=== PATIENT | male | born 1965 | race Caucasian/White ===

== ENCOUNTER → 2017-09-18 10:19 | Outpatient (CLI) | payer OTHER, SELFPAY ==
--- NOTE | 2017-09-18 10:23 | XR_ITS ---
XR chest 2V HISTORY: ITS.REASON: cough, recent fever ORDERING PHYSICIAN: LOLIS Hernández PATIENT AGE: 52 years COMPARISON: 2 02 16 FINDINGS: The cardiomediastinal silhouette and pulmonary vascularity are within normal limits. No lobar consolidation or collapse. There is mild coarsening of the bronchovascular markings which may be seen with chronic bronchitis/smoking-related lung disease.. There is minimal atelectatic change in the lingula.. An 8 mm nodular opacity is noted in the left lung base not readily apparent on the previous exam No acute bony abnormalities. IMPRESSION: 1. Coarsening of bronchovascular markings consistent with chronic bronchitis or smoking related lung disease with mild left basilar atelectasis. Please correlate with patient's history. 2. 8 mm nodular opacity left lung base nonspecific. While this may represent summation artifact, developing nodule or small area of atelectasis is an additional consideration. Recommend follow-up radiograph. If this persists then, CT may be needed for further evaluation.
== END ==
PROVIDERS: PCP Family Medicine; Visit Provider Physician Assistant
DX: J06.9 Acute upper respiratory infection, unspecified (principal); R05 Cough; I25.10 Atherosclerotic heart disease of native coronary artery without angina pectoris; E78.5 Hyperlipidemia, unspecified; Z72.0 Tobacco use
CPT/HCPCS: 71046

== ENCOUNTER → 2017-09-20 07:50 | Outpatient (CLI) | payer OTHER, SELFPAY ==
[2017-09-20 14:03] LABS: Alanine Aminotransferase 37 U/L (12-78); Albumin Level 3.6 gm/dL (3.4-5.0); Alkaline Phosphatase 77 U/L (46-116); Anion Gap 12.9 mEq/L (5-15); Aspartate Amino Transferase 22 U/L (15-37); Bilirubin,Direct 0.2 mg/dL (0.0-0.2); Bilirubin,Total 0.8 mg/dL (0.2-1.0); Blood Urea Nitrogen 21 mg/dL (7-18); Carbon Dioxide 25 mmol/L (21.0-32.0); Chloride 104 mmol/L (98-107); Chol/HDL Ratio 3.1 (1-3.5); Cholesterol 94 mg/dL (140-200); Creatinine,Serum 1.07 mg/dL (0.70-1.30); Estimated Glomerular Filt Rate 72 ml/min (>60); GFR (African American) 87 ML/MIN (>60); Glucose 100 mg/dL (74-106); HDL Cholesterol 30 mg/dL (27-67); LDL Cholesterol 45 mg/dL (0-130); Potassium 4.9 mmoL/L (3.5-5.1); Sodium 137 mmol/L (136-145); Total Protein,Serum 7.1 gm/dL (6.4-8.2); Triglycerides 94 mg/dL (30-200); VLDL Cholesterol 19 mg/dL (0-40)
== END ==
PROVIDERS: Physician Assistant; Visit Provider Internal Medicine
DX: I25.10 Atherosclerotic heart disease of native coronary artery without angina pectoris (principal); E78.5 Hyperlipidemia, unspecified; R05 Cough; Z72.0 Tobacco use; J06.9 Acute upper respiratory infection, unspecified
CPT/HCPCS: 36415; 80048; 80061; 80076

== ENCOUNTER → 2019-09-09 14:01 | Outpatient (CLI) | payer OTHER, SELFPAY ==
--- NOTE | 2019-09-09 14:03 | CA_ITS ---
APPROVED REPORT EXAM: Comprehensive 2D, Doppler, and color-flow Echocardiogram Site Controller: Noelle Pantoja CRT Ht: 5 ft 9 in Wt: 274lbs BSA: 2.36 BP: 135/58 mmHg Indications: obesity, smoker, htn, hld, sob, cad 2D Dimensions LVOT 2.19 cm (M/F) 1.5-2.5 M-Mode Dimensions RVDd 2.36 cm (0.9-2.6) LVDd 5.66 cm (3.5-5.7) LVDs 3.42 cm (3.5-5.7) IVSd 1.41 cm (0.6-1.1) PWd 0.95 cm (0.6-1.1) EF (Teich) 69.50% FS 39.60% EDV (Teich) 157.50 mL ESV (Teich) 48.10 mL LV Diastology E/A Ratio 1.95 Mitral Valve MV A Velocity 54.00 (40-130 cm/s) Left Ventricle Left atrium is mildly enlarged, left ventricle is normal size, mild concentric left ventricular hypertrophy, visually estimated ejection fraction 55% with no regional wall motion abnormality endocardial surfaces are poorly visualized, diastolic parameters are inconclusive. Right Ventricle Right atrium right ventricular normal size and contractility. Aortic Valve Aortic valve is grossly normal, there is no aortic stenosis or aortic insufficiency. Mitral Valve Mitral valve is grossly normal, there is mild mitral regurgitation. Tricuspid Valve Tricuspid valve is grossly normal, there is mild tricuspid regurgitation, tricuspid regurgitation jet velocity is inadequate for calculation of the right ventricular systolic pressure. Pulmonic Valve Pulmonic valve is poorly visualized. Great Vessels Aortic root is normal size. Pericardium No significant pericardial effusion noted. Conclusion 1. Mildly enlarged left atrium, normal left ventricular size, mild concentric left ventricular hypertrophy, visually estimated ejection fraction 55% with no regional wall motion abnormality, diastolic parameters are inconclusive. 2. Mild mitral and tricuspid regurgitation. 3. No significant pericardial effusion noted. Electronically signed by : Zeke Hannon, 09/10/2019 13:45:45
== END ==
PROVIDERS: PCP Family Medicine; Visit Provider Physician Assistant
DX: R06.09 Other forms of dyspnea (principal); I11.9 Hypertensive heart disease without heart failure; I25.10 Atherosclerotic heart disease of native coronary artery without angina pectoris; E78.49 Other hyperlipidemia
CPT/HCPCS: 93306

== ENCOUNTER → 2019-09-16 12:04 | Outpatient (CLI) | payer OTHER, SELFPAY | PROVIDERS: PCP Family Medicine; Visit Provider Urology | DX: G47.33 Obstructive sleep apnea (adult) (pediatric) (principal); R40.0 Somnolence; R53.83 Other fatigue; R06.02 Shortness of breath; I11.9 Hypertensive heart disease without heart failure; I25.10 Atherosclerotic heart disease of native coronary artery without angina pectoris | CPT/HCPCS: 95806 ==

== ENCOUNTER → 2020-06-24 10:04 | Outpatient (CLI) | payer OTHER, SELFPAY ==
[2020-06-24 12:36] LABS: Basophils # 0.1 K/mm3 (0-0.2); Basophils % 1.1 % (0.1-2.0); Eosinophils # 0.3 K/mm3 (0.0-0.4); Eosinophils % 3.5 % (0.1-12.0); Hematocrit 50.7 % (42.0-52.0); Hemoglobin 16.8 g/dL (14.1-18.0); Lymphocytes # 1.7 K/mm3 (0.7-4.5); Mean Corpuscular HGB Conc 33.2 g/dL (31.8-35.4); Mean Corpuscular Hemoglobin 33.3 pg (27.0-31.2); Mean Corpuscular Volume 100.4 fl (80-94); Mean Platelet Volume 9.7 fl (7.4-10.4); Monocytes # 0.6 K/mm3 (0.1-1.0); Monocytes % 7.9 % (1.7-9.3); Neutrophils # 4.9 K/mm3 (1.8-7.8); Neutrophils % 64.5 % (37.0-80.0); Platelet Count 160 K/mm3 (142-424); Red Blood Count 5.05 M/mm3 (4.60-6.20); Red Cell Distribution Width 12.9 % (11.5-17.5); White Blood Count 7.5 K/mm3 (4.8-10.8)
[2020-06-24 12:44] LABS: Chloride 103 mmol/L (98-107); Potassium 4.3 mmoL/L (3.5-5.1); Sodium 139 mmol/L (136-145)
[2020-06-24 12:46] LABS: Alanine Aminotransferase 32 U/L (12-78); Bilirubin,Unconjugated 0.6 mg/dL (0.0-1.1); Blood Urea Nitrogen 18 mg/dl (9-20); Estimated Glomerular Filt Rate 63 ml/min (>60); GFR (African American) 76 ML/MIN (>60)
[2020-06-24 12:47] LABS: Albumin Level 4.2 g/dl (3.5-5.0); Alkaline Phosphatase 75 U/L (38-126); Anion Gap 11.3 mEq/L (5-15); Aspartate Amino Transferase 30 U/L (17-59); Bilirubin,Direct 0.1 mg/dl (0.0-0.4); Bilirubin,Indirect 0.6 mg/dL (0.0-0.9); Bilirubin,Total 0.7 mg/dl (0.2-1.3); Carbon Dioxide 29 mmol/L (22.0-30.0); Chol/HDL Ratio 3.6 (1-3.5); Cholesterol 104 mg/dl (140-200); Glucose 63 mg/dl (74-100); HDL Cholesterol 29 mg/dl (40-60); Total Protein,Serum 7.3 g/dl (6.3-8.2); Triglycerides 209 mg/dl (30-150); VLDL Cholesterol 42 mg/dL (0-40)
[2020-06-24 12:58] LABS: NT Pro Brain Natriuretic Pep. 22.7 pg/mL (0-125)
[2020-06-24 12:59] LABS: Direct LDL Cholesterol 55.71 mg/dL (100-129)
[2020-06-24 13:02] LABS: Free T4 (Free Thyroxine) 0.73 ng/dl (0.78-2.19)
[2020-06-24 13:19] LABS: Thyroid Stimulating Hormone 7.42 uIU/mL (0.465-4.68)
== END ==
PROVIDERS: Visit Provider Internal Medicine Cardiovascular Disease
DX: R06.02 Shortness of breath (principal); I25.10 Atherosclerotic heart disease of native coronary artery without angina pectoris; E78.2 Mixed hyperlipidemia; I11.9 Hypertensive heart disease without heart failure; F17.200 Nicotine dependence, unspecified, uncomplicated
CPT/HCPCS: 36415; 80048; 80061; 80076; 83880; 84439; 84443; 85025

== ENCOUNTER → 2020-07-01 07:49 | Outpatient (CLI) | payer OTHER, SELFPAY ==
--- NOTE | 2020-07-01 | CA_ITS ---
APPROVED REPORT Exam: Pharmacologic Technologist: Jana Ferreira, Ht: 5 ft 9 in Wt: 262 lbs BSA: 2.32 m2 HR: 66 bpm BP: 126/72 mmHg Rhythm: SINUS RHYTHM WITH RBBB Medical History Medical History: HTN, Hyperlipidemia Medications: Lisinopril,,,,, Asa,,,,, Synthroid,,,,, Carvedilol,,,,, Plavix,,,,, SpirOLATONE,,,,, Nitro,,,,, AtrovASTATIN,,,,, Allergies: No known drug allergies Cardiac Risk Factors: Hyperlipidemia, Hyperlipidemia, Smoking Stress Test Details Test: LEXISCAN HR Resting HR: 63 bpm Max Heart Rate (APMHR): 165 bpm Max HR Achieved: 80 bpm Target HR (85% APMHR): 140 bpm % of APMHR: 48 Recovery HR: 76 bpm BP Resting BP: 126.0/72.0 mmHg Max BP: 126.0/72.0 mmHg Recovery BP: 123.0/70.0 mmHg ECG Resting ECG: SINUS RHYTHM WITH RBBB Clinical Exercise duration: 03:58 min Highest Stage Achieved: Stress ECG Conclusion LEXISCAN PORTION COMPLETED. PATIENT C/O SOA DURING PEAK INFUSION. RESOLVED IN RECOVERY. OCCASIONAL PVC. OCCASIONAL PAC. LESS THAN 1.5MM ST DEPRESSION. IMAGES TO FOLLLOW Test Summary . . Myoview Injected . . . Stop exercise at 03:58 . . . . Electronically signed by : Zeke Hannon, 07/01/2020 12:16:46
--- NOTE | 2020-07-01 07:50 | CA_ITS ---
APPROVED REPORT EXAM: Comprehensive 2D, Doppler, and color-flow Echocardiogram Poll Clerk: Ruth Wilson RDCS Ht: 5 ft 9 in Wt: 262lbs BSA: 2.32 BP: 127/75 mmHg Indications: SOA,CAD,HTN,OBESITY 2D Dimensions LVOT 2.05 cm (M/F) 1.5-2.5 M-Mode Dimensions RVDd 3.43 cm (0.9-2.6) LA Diam 3.58 cm (1.9-4.0) LVDd 4.92 cm (3.5-5.7) Ao Diam 3.45 cm (2.0-3.7) LVDs 3.60 cm (3.5-5.7) IVSd 1.02 cm (0.6-1.1) PWd 1.14 cm (0.6-1.1) EF (Teich) 52.20% FS 26.80% EDV (Teich) 113.90 mL ESV (Teich) 54.40 mL LV Diastology E Decel Time 223.00 (160-240 msec) E/A Ratio 1.1 Mitral Valve MV E Max Oscar. 66.00 (40-130 cm/s) MV A Velocity 58.00 (40-130 cm/s) E/A Ratio 1.15 MV Decel. Time 223.00 (160-240 ms) MV PHT 65.00 ms Left Ventricle Technically difficult study because of the patient factors and poor acoustic windows. Left atrium is mildly enlarged, left ventricle is normal size, mild concentric left ventricular hypertrophy, visually estimated ejection fraction 50%, there is moderate hypokinesis involving the inferior basal wall. Diastolic parameters are inconclusive. Right Ventricle Right atrium and right ventricle are mildly enlarged with normal contractility. Aortic Valve Aortic valve is minimally thickened and fibrosed, there is no aortic stenosis or aortic insufficiency. Mitral Valve Mitral valve grossly normal, there is mild mitral regurgitation. Tricuspid Valve Tricuspid valve is grossly normal, there is mild tricuspid regurgitation. Tricuspid regurgitation jet velocity is inadequate for calculation of the right ventricular systolic pressure. Pulmonic Valve Pulmonic valve is poorly visualized. Great Vessels Aortic root is normal size. Pericardium No significant pericardial effusion noted. Conclusion 1. Technically difficult study because of the patient factors and poor acoustic windows. 2. Mild biatrial enlargement, normal left ventricular size, mild concentric left ventricular hypertrophy, visually estimated ejection fraction 50% with segmental wall motion abnormality described above, diastolic parameters are inconclusive. 3. Mildly enlarged right ventricle with normal contractility. 4. Mild mitral and tricuspid regurgitation. 5. No significant pericardial effusion noted. Electronically signed by : Zeke Hannon, 07/01/2020 10:37:07
--- NOTE | 2020-07-01 07:57 | NM_ITS ---
APPROVED REPORT Exam: Nuclear Stress Test Indication: CAD, 2 STENTS, OBESITY, HTN, HYPERLIPIDEMIA, TOB USE. C.P., SOB, FATIGUE Patient Location: Outpatient Stress Tech: Saadia Nevillenkson NM Tech:Anika Coy, ARRJenni RT (R)(N)(M) Ht: 5 ft 9 in Wt: 263 lbs HR: 66 bpm BP: 126/72 mmHg BSA: 2.32 m2 BMI: 38.8 History: CAD, 2 STENTS, OBESITY, HTN, HYPERLIPIDEMIA, TOB USE. C.P., SOB, FATIGUE Procedure: Patient received a 0.4 mg of intravenous Lexiscan, resting heart rate 66 bpm, resting blood pressure 126/72 mmHg, with Lexiscan maximum heart rate achived was 78 bpm which is Less than 85 % of the maximum predicted heart rate and blood pressure was 117/71 mmHg. Electrocardiogram Resting electrocardiogram showed sinus rhythm nonspecific ST-T changes, with Lexiscan there is less than 1.[address] segment depression noted from the baseline EKG. The EKG portion of the Lexiscan Myoview is nondiagnostic. Cardiac Stress and Resting SPECT Images: Cardiac Stress and Resting SPECT images were obtained using technetium 99m Myoview 32.0 mCi stress and 10.33 mCi at rest. Gated SPECT for analysis of segmental wall motion and calculation of the ejection fraction also done. Prone imaging were also obtained. Cardiac stress and rest SPECT images show uniform myocardial activity without segmental perfusion abnormality, computer derived ejection fraction is 46% with no regional wall motion abnormality, right ventricle is mildly enlarged with normal contractility. Conclusion: 1. The EKG portion of the Lexiscan is nondiagnostic. 2. No scintigraphic evidence of reversible ischemia seen, computer derived ejection fraction is 46% with no regional wall motion abnormality, right ventricle is mildly enlarged with normal contractility. 3. Likely normal Lexiscan Myoview study. Electronically signed by : Zeke Hannon, 07/01/2020 12:21:55
== END ==
PROVIDERS: PCP Family Medicine; Visit Provider Internal Medicine Cardiovascular Disease
DX: R06.02 Shortness of breath (principal); I25.10 Atherosclerotic heart disease of native coronary artery without angina pectoris; I11.9 Hypertensive heart disease without heart failure; E78.2 Mixed hyperlipidemia; F17.200 Nicotine dependence, unspecified, uncomplicated
CPT/HCPCS: 78452; 93017; 93306; A9502; J2785

== ENCOUNTER 2021-12-05 13:01 | Emergency (ER) | payer OTHER, SELFPAY ==
[2021-12-05 13:02] VITALS: BP 149/85; PULSE 79; RESP 18; TEMP 36.9; O2SAT 96; BMI 91.7
--- NOTE | 2021-12-05 13:15 | [facility].EDGENADL ---
ED Disposition Clinical Impression: Finger laceration Qualifiers: Encounter type: initial encounter Finger: little finger Damage to nail status: without damage Foreign body presence: without foreign body Laterality: right Qualified Code(s): S61.216A - Laceration without foreign body of right little finger without damage to nail, initial encounter Disposition: Home, Self-Care Condition on Discharge: Good Instructions: DI for Laceration Repair Additional Instructions: Keflex as prescribed. [place] as needed for pain. Additional instructions for HAND LACERATION: Clean the wound daily with soap and water. Avoid submerging the wound. No swimming. DO NOT USE any antibiotic ointment such as Neosporin, Polysporin, or triple antibiotic. This will delay healing. See your primary care physician or return to the [facility] in 10 days for suture removal. The [facility]gent [facility] is open 9 AM to 9 PM 7 days a week. Return if any signs of infection including increasing pain, pus drainage, swelling, redness, red streaks, or fever. Additional instructions for CONTROLLED SUBSTANCES: You have been prescribed a medication that is a controlled substance. Controlled substances include pain medications known as opiates and sedative nerve medications known as benzodiazepines. Tramadol, fioricet, and gabapentin are also controlled substances. Some common opiates include: Codeine (such as Tylenol #3) Hydrocodone (Vicodin, Lortab, Lorcet, [place]) Oxycodone (Percocet, Percodan, Oxycodone, Oxy IR) Some common benzodiazepines include: Diazepam (Valium) Lorazepam (Ativan) Alprazolam (Xanax) Clonazepam (Klonopin) Oxazepam (Serax) All of these controlled substances are highly addictive and frequently abused. Misuse can and frequently does lead to addiction as well as overdose and . Medication should be stored in a locked cabinet or other secure storage unit. Do not store the medication in a motor vehicle. Short term supplies, 3 days or less, are prescribed because of the highly addictive nature of the medication. Any of the controlled substance medication NOT taken should be disposed of properly and NOT SAVED. The recommended method of disposing of unused medications is: Place the medicines in a sealable plastic bag. If the medicine is a solid, crush it or add water to dissolve it. Add something undesirable (cat litter, coffee grounds, etc.) Dispose of sealed bag in household trash Do not flush or pour unused medicines down a sink or drain. Controlled substances should not be shared, given away or sold. Because of the addictive nature and frequent abuse, these medications are sometimes stolen. These medications should be kept in a safe place where they cannot be stolen. Do not keep them in your car or purse. Lost or stolen prescriptions for controlled substances WILL NOT BE REFILLED in this emergency department, regardless of whether a police report was filed. Prescriptions: Hydrocod/Acet 5/325 mg [[place] 5/325mg tablet] 1 tab PO Q6HP PRN #10 tab PRN Reason: Pain Transmission Status: Sent to [facility] cephALEXin [cephALEXin 500mg capsule*] 500 mg PO Q6H #28 cap Transmission Status: Pending to [facility] Referrals: Dea Navarrete [Primary Care Provider] - - Critical Care Critical Care Time: No Attestation: On , the high probability of a clinically significant, sudden or life threatening deterioration of the following system(s) required my full and direct attention, intervention and personal management. The time I documented below is in addition to time spent performing reported procedures but includes the following listed in this critical care notation. Medical Decision Making - Basil Inquiry Pt receiving controlled substance: Yes Basil was queried for this patient: Yes Risks and benefits of using a controlled substance: were discussed with pt by me Vital Signs: 0
--- NOTE | 2021-12-05 13:21 | XR_ITS ---
FINAL REPORT CLINICAL HISTORY: cut with chainsaw FINDINGS: RIGHT FIFTH FINGER Three views demonstrate no acute fracture or dislocation. The joint spaces appear normal. The visualized bony structures are well aligned. There is soft tissue irregularity dorsally. IMPRESSION: Soft tissue irregularity without acute bony abnormality. Reviewed, Interpreted and Dictated by Hardy Ryan III, MD Transcribed by Macey Steen Authenticated by Hardy Ryan III, MD on 12/05/2021 03:02:36 PM [facility]
--- NOTE | 2021-12-05 13:43 | PC.NURSE ---
ISIDORO CORONA at to suture
[2021-12-05 15:08] VITALS: BP 138/70; PULSE 70; RESP 16; TEMP 36.8; O2SAT 98
== END 2021-12-05 15:09 | disposition home or self-care (01) ==
PROVIDERS: Emergency Provider Emergency Medicine; PCP Nurse Practitioner Family
DX: S61.216A Laceration without foreign body of right little finger without damage to nail, initial encounter (principal); W29.3XXA Contact with powered garden and outdoor hand tools and machinery, initial encounter; Y92.69 Other specified industrial and construction area as the place of occurrence of the external cause; Y99.0 Civilian activity done for income or pay; Z23 Encounter for immunization
CPT/HCPCS: 12042; 73140; 90471; 90715; 99283

== ENCOUNTER 2021-12-18 10:42 | Emergency (ER) | payer OTHER, SELFPAY ==
[2021-12-18 11:00] VITALS: BP 126/72; PULSE 75; RESP 19; TEMP 36.7; O2SAT 98; BMI 41.8
[2021-12-18 11:02] VITALS: BP 126/72; PULSE 75; RESP 19; TEMP 36.7
== END 2021-12-18 11:03 | disposition home or self-care (01) ==
PROVIDERS: Emergency Provider Nurse Practitioner Family; PCP Nurse Practitioner Family
DX: R06.02 Shortness of breath (principal); Z48.02 Encounter for removal of sutures; R53.82 Chronic fatigue, unspecified; E66.9 Obesity, unspecified; Z79.02 Long term (current) use of antithrombotics/antiplatelets; Z79.82 Long term (current) use of aspirin; Z79.899 Other long term (current) drug therapy; Z68.41 Body mass index [BMI] 40.0-44.9, adult